=== PATIENT | male | born 1970 ===

== ENCOUNTER 2018-05-17 13:56 | Emergency (ER) | payer SELFPAY ==
[2018-05-17 14:11] VITALS: BMI 32.8
[2018-05-17 14:15] VITALS: RESP 18; TEMP 98.7
--- NOTE | 2018-05-17 14:53 | C.PDOC ---
History Of Present Illness 48 year old male patient presents to the ER with complains of itchy rash on the forearms. 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 Patient reports that the rash is spreading. Has not tried any medication for it. Denies SOB, fever, chills, difficulty breathing, difficulty swallowing, tongue/lip swelling, nausea, and vomiting. Time Seen by Provider: 05/17/18 14:17 Chief Complaint (Nursing): Abnormal Skin Integrity History Per: Patient History/Exam Limitations: no limitations Onset/Duration Of Symptoms: Days Quality Of Symptoms: Itching Past Medical History Reviewed: Historical Data, Nursing Documentation, Vital Signs Vital Signs: Last Vital Signs Temp 98.7 F 05/17/18 14:12 Pulse 75 05/17/18 15:34 Resp 18 05/17/18 15:34 BP 125/76 05/17/18 15:34 Pulse Ox 97 05/17/18 15:34 Family History: States: No Known Family Hx - Social History Hx Alcohol Use: Yes Hx Substance Use: No - Immunization History Hx Tetanus Toxoid Vaccination: No Hx Influenza Vaccination: No Hx Pneumococcal Vaccination: No Review Of Systems Except As Marked, All Systems Reviewed And Found Negative. Constitutional: Negative for: Fever, Chills Respiratory: Negative for: Shortness of Breath Gastrointestinal: Negative for: Nausea, Vomiting Physical Exam - Physical Exam Appears: Well, Non-toxic, No Acute Distress Skin: Warm, Dry, Rash ((+) clustered vesicles on erythematous base primarily on the upper extremities. sparce on abdomen) Head: Atraumatic, Normacephalic Eye(s): bilateral: Normal Inspection, EOMI Nose: Normal Oral Mucosa: Moist Tongue: No Swelling Lips: No Swelling Throat: Normal, No Erythema, No Exudate, No Drooling Neck: Normal ROM, Supple Chest: Symmetrical Cardiovascular: Rhythm Regular Respiratory: Normal Breath Sounds, No Decreased Breath Sounds, Other (speaking in full sentences) Extremity: Normal ROM Neurological/Psych: Oriented x3, Normal Speech, No Other (focal deficits) Gait: Steady ED Course And Treatment O2 Sat by Pulse Oximetry: 96 (RA) Pulse Ox Interpretation: Normal Progress Note: Impression: 48 year old male patient with rashes on both wrists. Plan: -- Benadryl. -- Prednisone. On re-evaluation, Pt is rresting comfortably, shortness of breath, has no intra-oral swelling, no stridor. Patient was advised to avoid potential allergens, and to follow up with physician in 1-2 days. Disposition - Disposition Disposition: HOME/ ROUTINE Disposition Time: 14:52 Condition: STABLE Additional Instructions: Follow up with your primary medical doctor or clinic in 2-5 days for further evaluation. Take medications as prescribed. Return to the emergency department at any time if symptoms persist or worsen. Prescriptions: DiphenhydrAMINE [Benadryl] 25 mg PO Q6 #20 cap predniSONE [Prednisone] 40 mg PO DAILY #8 tab Skin Cleanser Combination No.8 [Zanfel] 1 soa TP BID #1 soa Instructions: Contact Dermatitis (DC) Forms: [employer] (Malaysian) Print Language: ANDORRAN - Clinical Impression Clinical Impression: Contact dermatitis - PA / [employer] / Resident Statement MD/ has reviewed & agrees with the documentation as recorded. - Scribe Statement The provider has reviewed the documentation as recorded by the Deedee Dejesus Do All medical record entries made by the Scribe were at my direction and personally dictated by me. I have reviewed the chart and agree that the record accurately reflects my personal performance of the history, physical exam, medical decision making, and the department course for this patient. I have also personally directed, reviewed, and agree with the discharge instructions and disposition.
--- NOTE | 2018-05-17 14:53 | C.PDOC ---
Time Seen by Provider: 05/17/18 14:17 Chief Complaint (Nursing): Abnormal Skin Integrity Past Medical History Vital Signs: Last Vital Signs Temp 98.7 F 05/17/18 14:12 Pulse 74 05/17/18 14:12 Resp 18 05/17/18 14:12 BP 131/79 05/17/18 14:12 Pulse Ox 96 05/17/18 14:12 - Social History Hx Alcohol Use: Yes Hx Substance Use: No - Immunization History Hx Tetanus Toxoid Vaccination: No Hx Influenza Vaccination: No Hx Pneumococcal Vaccination: No ED Course And Treatment O2 Sat by Pulse Oximetry: 96 Disposition - Disposition Forms: [employer] (Lithuanian)
[2018-05-17 15:36] VITALS: BP 125/76; PULSE 75
[2018-05-17 18:11] VITALS: O2SAT 96
== END 2018-05-17 15:35 | disposition home or self-care (01) ==
LOC: C.ER 13:56
DX: L25.9 Unspecified contact dermatitis, unspecified cause (principal)

== ENCOUNTER 2018-10-26 09:57 | Emergency (ER) | payer SELFPAY ==
[2018-10-26 09:57] VITALS: BMI 32.8
--- NOTE | 2018-10-26 10:46 | C.PDOC ---
History Of Present Illness 48 year old male presents to the ED complaining of right upper quadrant pain and epigastric pain associated with nausea for 4 days. Denies any fever, chills, vomiting, diarrhea, constipation, dysuria, hematuria, chest pain, back pain, or any other symptoms. Denies taking any medications for the pain. Denies recent surgical history. Time Seen by Provider: 10/26/18 10:16 Chief Complaint (Nursing): Abdominal Pain History Per: Patient History/Exam Limitations: no limitations Onset/Duration Of Symptoms: Days (4) Current Symptoms Are (Timing): Still Present Location Of Pain/Discomfort: RUQ, Epigastric Quality Of Discomfort: "Pain" Associated Symptoms: Nausea. denies: Fever, Chills, Vomiting, Diarrhea, Back Pain, Chest Pain, Constipation, Urinary Symptoms Past Medical History Reviewed: Historical Data, Nursing Documentation, Vital Signs Vital Signs: Last Vital Signs Temp 99.3 F 10/26/18 10:00 Pulse 81 10/26/18 10:00 Resp 17 10/26/18 10:00 BP 102/71 10/26/18 10:00 Pulse Ox 97 10/26/18 10:00 - Medical History PMH: No Chronic Diseases Surgical History: No Surg Hx Family History: States: No Known Family Hx - Social History Hx Alcohol Use: Yes Hx Substance Use: No - Immunization History Hx Tetanus Toxoid Vaccination: No Hx Influenza Vaccination: No Hx Pneumococcal Vaccination: No Review Of Systems Except As Marked, All Systems Reviewed And Found Negative. Constitutional: Negative for: Fever, Chills Cardiovascular: Negative for: Chest Pain Gastrointestinal: Positive for: Nausea, Abdominal Pain. Negative for: Vomiting, Diarrhea, Constipation Genitourinary: Negative for: Dysuria, Hematuria Musculoskeletal: Negative for: Back Pain Physical Exam - Physical Exam Appears: Non-toxic, No Acute Distress Skin: Warm, Dry Head: Normacephalic Eye(s): bilateral: Normal Inspection Nose: Normal Oral Mucosa: Moist Neck: Supple Chest: Symmetrical Cardiovascular: Rhythm Regular Respiratory: Normal Breath Sounds, No Rales, No Rhonchi, No Wheezing Gastrointestinal/Abdominal: Soft, Tenderness (RUQ), No Distention, No Guarding, No Rebound Neurological/Psych: Oriented x3, Normal Speech Gait: Steady ED Course And Treatment - Laboratory Results Result Diagrams: 10/26/18 11:09 12/24/18 11:09 O2 Sat by Pulse Oximetry: 97 (RA) Pulse Ox Interpretation: Normal - CT Scan/US US abdomen Other Rad Studies (CT/US): Read By Radiologist, Radiology Report Reviewed CT/US Interpretation: Accession No. : [id number]. Patient Name / ID : SUZANNE PADILLA / [id number]. Exam Date : 10/26/2018 11:18:52 ( Approved ). Study Comment : Sex / Age : M / 48Y. Creator : Chintan Hansen MD. Dictator : Chintan Hansen MD. 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 Approver2 : Report Date : 10/26/2018 12:07:18. My Comment : . Date of service: 10/26/2018. HISTORY: abd pain RUQ. COMPARISON: None. TECHNIQUE: Sonographic evaluation of the right upper quadrant of the abdomen. FINDINGS: LIVER: Measures 16.8 cm in length. Hepatopedal blood flow. Fatty infiltration manifest ultrasonographically as increased echogenicity of the liver parenchyma. No mass. No intrahepatic bile duct dilatation. GALLBLADDER: Status post cholecystectomy. No abnormality is seen in the gallbladder fossa. COMMON BILE DUCT: Measures 6.1 mm. No stones. No dilatation. PANCREAS: Unremarkable as visualized. No mass. No ductal dilatation. RIGHT KIDNEY: Measures 5.2 x 11.4 cm in length. Normal echogenicity. No calculus, mass, or hydronephrosis. AORTA: No aneurysmal dilatation. IVC: Unremarkable. OTHER FINDINGS: None . IMPRESSION: Mildly enlarged liver/hepatic steatosis. Otherwise unremarkable study. Progress - Re-Evaluation Re-evaluation Note: 10/26/18 12:42 IMPROVED SOFT NT ND NO R/G US REPORT NEG - Data Reviewed Data Reviewed: Lab, Diagnostic imaging, Old records Medical Decision Making Medical Decision Making: Plan - Bloodwork - Pepcid 20mg IVP - Morphine 4mg IVP - Zofran 4mg IVP - UA - US abdomen Disposition Counseled Patient/Family Regarding: Studies Performed, Diagnosis, Need For Followup, Rx Given - Disposition Referrals: [facility] [Outside] [facility] [Outside] Disposition: HOME/ ROUTINE Disposition Time: 12:42 Condition: IMPROVED Prescriptions: Famotidine [Pepcid AC] 10 mg PO QN #30 tablet Ondansetron ODT [Zofran ODT] 4 mg PO TID PRN #12 odt PRN Reason: Nausea/Vomiting Instructions: Gastritis (DC), Nausea and Vomiting, Adult (DC) Forms: [employer] (Singaporean), Work Excuse Print Language: GEORGIAN - Clinical Impression Clinical Impression: Abdominal pain, Vomiting - Scribe Statement The provider has reviewed the documentation as recorded by the Scribgaby Schmidt All medical record entries made by the Bobibgaby were at my direction and personally dictated by me. I have reviewed the chart and agree that the record accurately reflects my personal performance of the history, physical exam, medical decision making, and the department course for this patient. I have also personally directed, reviewed, and agree with the discharge instructions and disposition.
[2018-10-26 11:16] LABS: BASO # 0.1 K/uL (0.0-0.2); BASO % 1.1 % (0.0-2.0); EOS # 0.3 K/uL (0.0-0.7); EOS % 5.7 % (0.0-4.0); HEMOGLOBIN 14.6 g/dL (12.0-18.0); LYMPH # 1.2 K/uL (1.0-4.3); LYMPH % 20.9 % (20.0-40.0); MEAN CELL VOLUME 88.2 fL (80.0-94.0); MEAN CORPUSCULAR HGB CONC 35.1 g/dL (33.0-37.0); MONO # 0.4 K/uL (0.0-0.8); MONO % 7.9 % (0.0-10.0); NEUT # 3.7 K/uL (1.8-7.0); NEUT % 64.4 % (50.0-75.0); RBC 4.72 Mil/uL (4.40-5.90); RED CELL DISTRIBUTION WIDTH 12.6 % (11.5-14.5); WHITE BLOOD COUNT 5.7 K/uL (4.8-10.8)
[2018-10-26] MEDS ORDERED: Morphine 4 MG/ML VIAL ONE (11:21)
[2018-10-26 11:35] LABS: ALB/GLOB RATIO 1.3 (1.0-2.1); ALBUMIN 3.8 g/dL (3.5-5.0); ALT/SGPT 39 U/L (21-72); AST/SGOT 26 U/L (17-59); BLOOD UREA NITROGEN 15 mg/dL (9-20); CALCIUM 9.1 mg/dl (8.6-10.4); GFR NON-AFRICAN AMERICAN > 60; LIPASE 96 U/L (23-300)
--- NOTE | 2018-10-26 12:10 | US ---
Date of service: 10/26/2018 HISTORY: abd pain RUQ COMPARISON: None. TECHNIQUE: Sonographic evaluation of the right upper quadrant of the abdomen. FINDINGS: LIVER: Measures 16.8 cm in length. Hepatopedal blood flow. Fatty infiltration manifest ultrasonographically as increased echogenicity of the liver parenchyma. No mass. No intrahepatic bile duct dilatation. GALLBLADDER: Status post cholecystectomy. No abnormality is seen in the gallbladder fossa. COMMON BILE DUCT: Measures 6.1 mm. No stones. No dilatation. PANCREAS: Unremarkable as visualized. No mass. No ductal dilatation. RIGHT KIDNEY: Measures 5.2 x 11.4 cm in length. Normal echogenicity. No calculus, mass, or hydronephrosis. AORTA: No aneurysmal dilatation. IVC: Unremarkable. OTHER FINDINGS: None . IMPRESSION: Mildly enlarged liver/hepatic steatosis. Otherwise unremarkable study.
[2018-10-26 12:17] VITALS: RESP 18
[2018-10-26 12:30] LABS: SQUAMOUS EPITHIAL < 1 /hpf (0-5); URINE BILIRUBIN NEGATIVE (NEGATIVE); URINE BLOOD NEGATIVE (NEGATIVE); URINE CLARITY Clear (Clear); URINE COLOR Yellow (YELLOW); URINE GLUCOSE (UA) NORMAL (Normal); URINE LEUKOCYTE ESTERASE NEG Leu/uL (Negative); URINE PROTEIN NEGATIVE (NEGATIVE); URINE UROBILINOGEN NORMAL mg/dL (0.2-1.0)
[2018-10-26 13:14] VITALS: BP 109/73; PULSE 60; TEMP 98.3; O2SAT 96
== END 2018-10-26 13:14 | disposition home or self-care (01) ==
LOC: C.ER 09:57
DX: R10.11 Right upper quadrant pain (principal); R10.13 Epigastric pain; R11.10 Vomiting, unspecified
CPT/HCPCS: 76705; 80053; 81001; 83690; 85025; 96374; 96375; 99285; J2270; J2405